=== PATIENT | female | born 1990 | race Two or more races ===

== ENCOUNTER 2017-02-05 16:45 | Emergency (ER) | payer SELFPAY ==
[2017-02-05 17:40] LABS: SPECIFIC GRAVITY 1.025 (1.001-1.030); URINE BILIRUBIN NEGATIVE (NEGATIVE); URINE BLOOD TRACE (NEGATIVE); URINE GLUCOSE (UA) NEGATIVE (NEGATIVE); URINE LEUKOCYTE ESTERASE NEGATIVE (NEGATIVE); URINE NITRITE NEGATIVE (NEGATIVE); URINE PROTEIN NEGATIVE (NEGATIVE)
[2017-02-05 17:43] LABS: URINE APPEARANCE CLEAR; URINE COLOR DARK YELLOW; URINE UROBILINOGEN 4 mg/dL (0-1 mg/dl)
[2017-02-05 17:44] LABS: HCG,QUALITATIVE URINE NEGATIVE
== END 2017-02-05 19:03 | disposition home or self-care (01) ==
LOC: ED 16:45
DX: N76.0 Acute vaginitis (principal)